=== PATIENT | female | born 1940 | race Hispanic/Latino ===

== ENCOUNTER 2021-09-03 06:45 | Emergency (ER) | payer MEDICARE ==
[~2021-09-03] VITALS: Ht 170.2 cm; Wt 68.0 kg
== END 2021-09-03 08:16 | disposition home or self-care (01) ==
LOC: ER 07:00
DX: S00.83XA Contusion of other part of head, initial encounter (principal); W06.XXXA Fall from bed, initial encounter; Y93.84 Activity, sleeping; Y92.003 Bedroom of unspecified non-institutional (private) residence as the place of occurrence of the external cause; I10 Essential (primary) hypertension; E11.9 Type 2 diabetes mellitus without complications; E78.5 Hyperlipidemia, unspecified
CPT/HCPCS: 70450; 72125; 99283